=== PATIENT | female | born 1965 | race Asian ===

== ENCOUNTER 2017-03-26 09:42 | Emergency (ER) | payer OTHER ==
[~2017-03-26] VITALS: Ht 160 cm; Wt 70.0 kg
[~2017-03-26 09:42] MED LIST: [UNRECOGNIZED DRUG - CODE] PO
[2017-03-26] MEDS ORDERED: FLUO60GE9 TP (10:07)
[2017-03-26] MEDS ORDERED: HYDR-3110 PO (10:07)
[2017-03-26] MEDS ORDERED: CIPR-278 PO (10:07)
[2017-03-26 10:21] VITALS: BP 131/68
[2017-03-26] MEDS ORDERED: CefTRIAXone SODIUM 250 MG in DEXTROSE 5%-WATER 50 ML IV ONE (11:45)
[2017-03-26] MEDS ORDERED: CefTRIAXone SODIUM 1 GM/VIAL IM ONE (12:30)
[2017-03-26] MEDS ORDERED: LIDOCAINE HCL/PF 1% 2 ML VIAL IM ONE (12:30)
== END 2017-03-26 12:50 | disposition home or self-care (01) ==
LOC: EMS 09:43
DX: L25.9 Unspecified contact dermatitis, unspecified cause (principal); L08.9 Local infection of the skin and subcutaneous tissue, unspecified
CPT/HCPCS: 96372; 99283; J0696; J3490; J7060

== ENCOUNTER 2018-09-01 22:56 | Emergency (ER) | payer OTHER ==
[~2018-09-01] VITALS: Ht 157.5 cm; Wt 68.2 kg
[~2018-09-01 22:56] MED LIST changes: +CIPR-278 PO; +FLUO60GE9 TP; +HYDR-3110 PO
[2018-09-01] MEDS ORDERED: SODIUM CHLORIDE 0.9% 1,000 ML IV ONE (23:28)
[2018-09-01] MEDS ORDERED: METOCLOPRAMIDE HCL 5 MG/ML 2 ML VIAL IVP ONE (23:30)
[2018-09-01] MEDS ORDERED: KETOROLAC TROMETHAMINE 30 MG/ML VIAL IVP ONE (23:30)
[2018-09-02 00:09] LABS: BASOPHILS % (AUTO) 0.5 % (0.0-2.0); HEMATOCRIT 38.6 % (36-46); HEMOGLOBIN 12.4 g/dL (12.0-16.0); LYMPHOCYTES # (AUTO) 1.9 K/uL (1.0-4.8); LYMPHOCYTES % (AUTO) 26.8 % (22.0-44.0); MEAN CORPUSCULAR HEMOGLOBIN 28.6 pg (26.0-34.0); MEAN CORPUSCULAR HGB CONC 32.1 G/dL (31.0-37.0); MEAN CORPUSCULAR VOLUME 89 fL (80-100); MONOCYTES # (AUTO) 0.4 K/uL (0.1-1.0); MONOCYTES % (AUTO) 5.9 % (2.0-9.0); NEUTROPHILS # (AUTO) 4.6 K/uL (1.8-7.7); NEUTROPHILS % (AUTO) 65.8 % (40.0-70.0); PLATELET COUNT (AUTO) 282 K/uL (150-450); RED BLOOD CELL COUNT(AUTO) 4.34 MIL/uL (4.00-5.20); RED CELL DISTRIBUTION WIDTH 13.2 % (11.5-14.5)
[2018-09-02 00:20] LABS: ANION GAP 8 mmol/L (8-16); CALCIUM, TOTAL 8.4 mg/dL (8.8-10.5); CARBON DIOXIDE 26 mmol/L (22-29); CHLORIDE 104 mmol/L (98-107); CREATININE 0.68 mg/dL (0.60-1.30); GLOMERULAR FILTR. RATE CALC > 60 mL/min (>60); GLUCOSE,RANDOM 103 mg/dL (70-110); POTASSIUM 3.7 mmol/L (3.5-5.1); SODIUM SERUM 138 mmol/L (136-145); UREA NITROGEN, BLOOD 13 mg/dL (7-18)
[2018-09-02 00:26] LABS: ALANINE AMINOTRANSFERASE 18 U/L (12-78); ALBUMIN 3.5 g/dL (3.4-5.0); ALKALINE PHOSPHATASE 82 U/L (46-116); ASPARTATE AMINOTRANSFERASE 17 U/L (15-37); BILIRUBIN,TOTAL 0.3 mg/dL (0.1-1.0); TOTAL PROTEIN, SERUM 7.2 g/dL (6.4-8.2)
[2018-09-02 01:16] LABS: APPEARANCE,URINE CLEAR (CLEAR); BILIRUBIN,URINE NEGATIVE (NEGATIVE); GLUCOSE, URINE (UA) NEGATIVE (NEGATIVE); KETONES,URINE NEGATIVE (NEGATIVE); LEUKOCYTE ESTERASE ,URINE NEGATIVE (NEGATIVE); NITRATE,URINE NEGATIVE (NEGATIVE); OCCULT BLOOD,URINE NEGATIVE (NEGATIVE); PH,URINE 7.5 (5.0-8.0); PROTEIN,URINE NEGATIVE (NEGATIVE); UROBILINOGEN,URINE 0.2 mg/dL (<=1.0)
[2018-09-02 02:35] VITALS: BP 111/73
== END 2018-09-02 02:53 | disposition home or self-care (01) ==
LOC: EMS 22:57
DX: R51 Headache (principal); R42 Dizziness and giddiness
CPT/HCPCS: 36415; 70450; 80053; 81003; 85025; 96361; 96374; 96375; 99284; J1885; J2765; J7030

== ENCOUNTER 2020-01-26 19:12 | Emergency (ER) | payer OTHER ==
[~2020-01-26] VITALS: Ht 157.5 cm; Wt 68.2 kg
[2020-01-26 19:16] VITALS: BP 109/63
[2020-01-26] MEDS ORDERED: IBUPROFEN 400 MG TABLET PO ONE (20:45)
[2020-01-26] MEDS ORDERED: ACETAMINOPHEN 325 MG TABLET PO ONE (20:45)
== END 2020-01-26 21:59 | disposition home or self-care (01) ==
LOC: EMS 19:14
DX: S90.02XA Contusion of left ankle, initial encounter (principal); W20.8XXA Other cause of strike by thrown, projected or falling object, initial encounter; Y93.89 Activity, other specified; Y92.512 Supermarket, store or market as the place of occurrence of the external cause; Y99.8 Other external cause status
CPT/HCPCS: 73610-TC; 73650-TC; Z7502; Z7610